=== PATIENT | female | born 1990 ===

== ENCOUNTER 2016-11-29 16:56 | Emergency (ER) | payer SELFPAY ==
[2016-11-29 17:10] VITALS: BP 143/88; PULSE 79; RESP 20; TEMP 98.8; O2SAT 98
[2016-11-29] MEDS ORDERED: Oxycodone/Acetaminophen 5/325 mg Tab PO STA (17:13)
[2016-11-29] MEDS ORDERED: Oxycodone/Acetaminophen 5/325 mg Tab ONE (17:34)
--- NOTE | 2016-11-29 17:40 | ED PDOC ---
Arrival/HPI - General Chief Complaint: Hip Pain Past Medical History - Psychiatric Hx Substance Use: No - Surgical History Hx Appendectomy: Yes - Anesthesia Hx Anesthesia: Yes Hx Anesthesia Reactions: No Family/Social History Smoking Status: Never Smoked Hx Alcohol Use: No Hx Substance Use: No Allergies/Home Meds Allergies/Adverse Reactions: Allergies No Known Allergies Allergy (Verified 11/29/16 17:06) Physical Exam Vital Signs Temp Pulse Resp BP Pulse Ox 11/29/16 17:06 98.8 F 79 20 143/88 98
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
--- NOTE | 2016-11-30 07:36 | RAD ---
HISTORY: hip pain COMPARISON: No prior FINDINGS: BONES: Normal. No fracture. JOINTS: Normal. No osteoarthritis. SOFT TISSUE: Normal. OTHER FINDINGS: None . IMPRESSION: Normal Bone Xray.
--- NOTE | 2016-11-30 07:37 | RAD ---
PROCEDURE: Right Knee Radiographs. HISTORY: knee injury COMPARISON: None. FINDINGS: BONES: Normal. No fracture. JOINTS: Normal. No osteoarthritis. JOINT EFFUSION: None. OTHER FINDINGS: None. IMPRESSION: Normal radiographs of the right knee.
== END 2016-11-29 19:34 | disposition home or self-care (01) ==
LOC: H.ER 16:56
DX: S89.91XA Unspecified injury of right lower leg, initial encounter (principal); M25.552 Pain in left hip; V03.10XA Pedestrian on foot injured in collision with car, pick-up truck or van in traffic accident, initial encounter; Y92.410 Unspecified street and highway as the place of occurrence of the external cause

== ENCOUNTER 2018-10-29 16:24 | Emergency (ER) | payer OTHER ==
[2018-10-29 16:46] VITALS: BMI 39.9
[2018-10-29] MEDS ORDERED: Sodium Chloride 0.9% 1,000 ML IV STA (17:51)
[2018-10-29 18:21] LABS: SQUAMOUS EPITHIAL 1 /hpf (0-5); URINE BACTERIA RARE (<OCC); URINE BILIRUBIN NEGATIVE (NEGATIVE); URINE BLOOD NEGATIVE (NEGATIVE); URINE CLARITY SLIGHTY-CLOUDY (Clear); URINE COLOR YELLOW (YELLOW); URINE GLUCOSE (UA) NEG (NEGATIVE); URINE LEUKOCYTE ESTERASE NEG Leu/uL (Negative); URINE PROTEIN NEGATIVE (NEGATIVE); URINE UROBILINOGEN 0.2-1.0 mg/dL (0.2-1.0)
[2018-10-29 18:38] LABS: BASO # 0.1 K/uL (0.0-0.2); EOS # 0.1 K/uL (0.0-0.7); EOS % 0.9 % (0.0-4.0); HEMOGLOBIN 13.9 g/dL (12.0-16.0); LYMPH # 2.8 K/uL (1.0-4.3); LYMPH % 31.2 % (20.0-40.0); MEAN CELL VOLUME 88.5 fl (81.0-99.0); MEAN CORPUSCULAR HEMOGLOBIN 29.1 pg (27.0-31.0); MEAN CORPUSCULAR HGB CONC 32.9 g/dL (33.0-37.0); MEAN PLATELET VOLUME 7.1 fl (7.2-11.7); MONO # 0.6 K/uL (0.0-0.8); MONO % 6.8 % (0.0-10.0); NEUT # 5.4 K/uL (1.8-7.0); NEUT % 60.1 % (50.0-75.0); RBC 4.79 Mil/uL (3.80-5.20); RED CELL DISTRIBUTION WIDTH 14.8 % (11.5-14.5)
[2018-10-29 18:48] LABS: ALB/GLOB RATIO 1.2 (1.0-2.1); ALBUMIN 4.2 g/dL (3.5-5.0); ALT/SGPT 27 U/L (9-52); AST/SGOT 23 U/L (14-36); BLOOD UREA NITROGEN 12 mg/dl (7-17); CALCIUM 9.1 mg/dL (8.4-10.2); GFR NON-AFRICAN AMERICAN > 60
--- NOTE | 2018-10-29 19:26 | ED PDOC ---
HPI: Female Pain Time Seen by Provider: 10/29/18 16:48 Chief Complaint (Nursing): Female Genitourinary History Per: Patient History/Exam Limitations: no limitations Onset/Duration Of Symptoms: Days Current Symptoms Are (Timing): Still Present Severity: Mild Quality Of Discomfort: Sharp Associated Symptoms: Nausea. denies: Fever, Chills Alleviating Factors: None Additional Complaint(s): Pt. is a 27 y/o Healthy Female who reports 2 week history of crampy pelvic pain, with no associated vaginal discharge, dysuria, or fevers. She reports some mild nausea today. Pt. saw her counterintelligence analyst last week and was given a rx for a pelvic US but her she had her menses so didn't schedule. Pt. reports her menses finished and her pelvic pain continued prompting visit to ED. Past Medical History Reviewed: Historical Data, Nursing Documentation, Vital Signs Vital Signs: Last Vital Signs Temp 98.1 F 10/29/18 16:48 Pulse 86 10/29/18 16:48 Resp BP 137/84 10/29/18 16:48 Pulse Ox 100 10/29/18 16:48 - Medical History PMH: No Chronic Diseases - Surgical History Surgical History: Appendectomy - Family History Family History: States: Unknown Family Hx - Home Medications Home Medications: Ambulatory Orders Medication Instructions Recorded Famotidine [Pepcid] 20 mg PO BID #14 tab 06/02/15 Nitrofurantoin Macrocrystals 100 mg PO BID #10 cap 06/02/15 [Macrobid] Cyclobenzaprine [Cyclobenzaprine 10 mg PO BID #14 tab 11/29/16 HCl] Ibuprofen [Motrin] 400 mg PO Q6 #30 tab 11/29/16 - Allergies Allergies/Adverse Reactions: Allergies Allergy/AdvReac Type Severity Reaction Status Date / Time No Known Allergies Allergy Verified 10/29/18 16:55 Review of Systems Constitutional: Negative for: Fever, Chills Cardiovascular: Negative for: Chest Pain, Palpitations Respiratory: Negative for: Cough, Shortness of Breath Gastrointestinal: Positive for: Nausea. Negative for: Vomiting, Abdominal Pain, Diarrhea Genitourinary Female: Positive for: Pelvic Pain. Negative for: Dysuria, Frequency, Vaginal Discharge Physical Exam - Reviewed Vital Signs Reviewed: Yes - Physical Exam Appears: Positive for: Well, Non-toxic Head Exam: Positive for: ATRAUMATIC Skin: Positive for: Normal Color, Warm, Dry Eye Exam: Positive for: Normal appearance Neck: Positive for: Normal Cardiovascular/Chest: Positive for: Regular Rate, Rhythm Respiratory: Positive for: Normal Breath Sounds Gastrointestinal/Abdominal: Positive for: Normal Exam, Soft. Negative for: Tenderness Pelvic Exam: Positive for: External Exam Normal, Bimanual Exam Normal, No Cerv. Motion Tender, Tender Adnexa (Mild tenderness with no appreciable mass to adnexa bilaterally). Negative for: Active Bleeding, Blood, Discharge - Laboratory Results Result Diagrams: 10/29/18 18:32 10/29/18 18:32 Lab Results: Total Bilirubin 0.5 mg/dl (0.2-1.3) 10/29/18 18:32 AST 23 U/L (14-36) 10/29/18 18:32 ALT 27 U/L (9-52) 10/29/18 18:32 Alkaline Phosphatase 99 U/L (38-126) 10/29/18 18:32 Total Protein 7.8 G/DL (6.3-8.2) 10/29/18 18:32 Albumin 4.2 g/dL (3.5-5.0) 10/29/18 18:32 Globulin 3.6 gm/dL (2.2-3.9) 10/29/18 18:32 Albumin/Globulin Ratio 1.2 (1.0-2.1) 10/29/18 18:32 Urine Color Yellow (YELLOW) 10/29/18 18:10 Urine Clarity Slighty-cloudy (Clear) 10/29/18 18:10 Urine pH 6.0 (5.0-8.0) 10/29/18 18:10 Ur Specific [place] 1.024 (1.003-1.030) 10/29/18 18:10 Urine Protein Negative mg/dL (NEGATIVE) 10/29/18 18:10 Urine Glucose (UA) Neg mg/dL (NEGATIVE) 10/29/18 18:10 Urine Ketones Negative mg/dL (NEGATIVE) 10/29/18 18:10 Urine Blood Negative (NEGATIVE) 10/29/18 18:10 Urine Nitrate Negative (NEGATIVE) 10/29/18 18:10 Urine Bilirubin Negative (NEGATIVE) 10/29/18 18:10 Urine Urobilinogen 0.2-1.0 mg/dL (0.2-1.0) 10/29/18 18:10 Ur Leukocyte Esterase Neg Obi/uL (Negative) 10/29/18 18:10 Urine RBC (Auto) 2 /hpf (0-3) 10/29/18 18:10 Urine Microscopic WBC 1 /hpf (0-5) 10/29/18 18:10 Ur Squamous Epith Cells 1 /hpf (0-5) 10/29/18 18:10 Urine Bacteria Rare (<OCC) 10/29/18 18:10 - ECG O2 Sat by Pulse Oximetry: 100 Medical Decision Making Medical Decision Making: IV access established. IVF given IV Toradol IV Zofran Pelvic US ordered. On reassessment, pt. resting comfortably, abd. soft/nt. Case endorsed to CONRAD Madison at 8pm, pending US results. Disposition - Clinical Impression Clinical Impression: Pelvic pain - Patient ED Disposition Is Patient to be Admitted: Transfer of Care (CONRAD Madison, pending US) Counseled Patient/Family Regarding: Studies Performed, Diagnosis, Need For Followup - Disposition Disposition: Transfer of Care (CONRAD Madison at 8 pm, pending US) Disposition Time: 20:28 Condition: STABLE Forms: [employer] ([place])
--- NOTE | 2018-10-29 21:24 | ED PDOC ---
- Laboratory Results Result Diagrams: 10/29/18 18:32 10/29/18 18:32 Lab Results: Total Bilirubin 0.5 mg/dl (0.2-1.3) 10/29/18 18:32 AST 23 U/L (14-36) 10/29/18 18:32 ALT 27 U/L (9-52) 10/29/18 18:32 Alkaline Phosphatase 99 U/L (38-126) 10/29/18 18:32 Total Protein 7.8 G/DL (6.3-8.2) 10/29/18 18:32 Albumin 4.2 g/dL (3.5-5.0) 10/29/18 18:32 Globulin 3.6 gm/dL (2.2-3.9) 10/29/18 18:32 Albumin/Globulin Ratio 1.2 (1.0-2.1) 10/29/18 18:32 Urine Color Yellow (YELLOW) 10/29/18 18:10 Urine Clarity Slighty-cloudy (Clear) 10/29/18 18:10 Urine pH 6.0 (5.0-8.0) 10/29/18 18:10 Ur Specific [place] 1.024 (1.003-1.030) 10/29/18 18:10 Urine Protein Negative mg/dL (NEGATIVE) 10/29/18 18:10 Urine Glucose (UA) Neg mg/dL (NEGATIVE) 10/29/18 18:10 Urine Ketones Negative mg/dL (NEGATIVE) 10/29/18 18:10 Urine Blood Negative (NEGATIVE) 10/29/18 18:10 Urine Nitrate Negative (NEGATIVE) 10/29/18 18:10 Urine Bilirubin Negative (NEGATIVE) 10/29/18 18:10 Urine Urobilinogen 0.2-1.0 mg/dL (0.2-1.0) 10/29/18 18:10 Ur Leukocyte Esterase Neg Obi/uL (Negative) 10/29/18 18:10 Urine RBC (Auto) 2 /hpf (0-3) 10/29/18 18:10 Urine Microscopic WBC 1 /hpf (0-5) 10/29/18 18:10 Ur Squamous Epith Cells 1 /hpf (0-5) 10/29/18 18:10 Urine Bacteria Rare (<OCC) 10/29/18 18:10 - ECG O2 Sat by Pulse Oximetry: 100 - Progress ED Course And Treament: Case endorsed to bid writer from [facility] CORNELL pending u/s History Pelvic pain. Comparison None available. Technique TA/TV Findings Uterus Measures 10.7 x 6.3 x 5.2 cm. Normal in size and appearance. No fibroid or other mass lesion seen. Endometrium Inhomogeneous measures 11 mm in diameter. Right ovary Measures 3.9 x 3.3 x 1.9 cm. Normal flow. Complex tubular structure in the right adnexal region with internal echoes measuring 7.8 x 4.4 x 3.1 cm. Left ovary Measures 3.1 x 2.3 x 2.3 cm. No solid mass. Normal flow. Free fluid No significant free fluid noted. Other Findings None. Impression 1. Inhomogeneous endometrium. 2. Large complex tubular structure with internal echoes in the right adnexal region, consistent with tubo-ovarian abscess versus hydrosalpinx. Consider follow-up with MRI Case discussed with Dr. Santamaria, Sports Complex Attendant on-call; recommends outpatient abx treatment and [facility] follow up Rocephin IM, Doxycyline PO ordered GC/Chlamydia added Patient educated on findings, discharged with rx Doxycyline, Naproxen Advised follow up [facility] Hanger within 2-3 days Refrain from intercourse until treatment completed Return precautions given Disposition - Clinical Impression Clinical Impression: Pelvic pain, Hydrosalpinx - POA Present On Arrival: None - Disposition [facility] [Outside] Disposition: Routine/Home Disposition Time: 23:08 Condition: IMPROVED Additional Instructions: Follow up with your [facility] within 2-3 days Take medication as prescribed Return to ED for worsening/concerning symptoms Prescriptions: Doxycycline Monohydrate 100 mg PO BID #27 capsule Naproxen [Naprosyn] 500 mg PO Q12 PRN #20 tablet PRN Reason: Pain, Moderate (4-7) Instructions: Acute Pelvic Pain, Pelvic Inflammatory Disease Forms: [employer] (Kyrgyz)
[2018-10-29] MEDS ORDERED: cefTRIAXone (Rocephin) 250 mg Inj IM ONE (22:03)
[2018-10-29] MEDS ORDERED: Sterile Water 10 ML IV ONE (22:27)
[2018-10-29 23:17] VITALS: BP 132/71; PULSE 76; RESP 16; TEMP 98.2; O2SAT 98
--- NOTE | 2018-10-30 09:54 | US ---
Date of service: 10/29/2018 HISTORY: pelvic pain COMPARISON: None available. TECHNIQUE: Transabdominal and transvaginal FINDINGS: UTERUS: Measures 10.7 x 6.3 x 5.2 cm. Normal in size and appearance. No fibroid or other mass lesion seen. ENDOMETRIUM: Measures 11 mm in diameter. Unremarkable. CERVIX: No cervical abnormality identified. RIGHT OVARY: Measures 3.9 x 3.3 x 1.9 cm. No solid mass. Normal flow. Adjacent to the right ovary there is a somewhat distended tubular structure containing internal echoes with layering debris. This structure measures approximately 3.1 x 4.4 x 7.8 cm. Differential diagnosis includes fallopian tube with some old hemorrhagic content or post infectious debris, or an atypical ovarian or paraovarian cyst. LEFT OVARY: Measures 3.1 x 2.3 x 2.3 cm. No solid mass. Normal flow. FREE FLUID: No significant free fluid noted. OTHER FINDINGS: None. IMPRESSION: Tubular structure with internal echoes in right adnexa, possibly hydrosalpinx. Internal echoes may represent old hemorrhagic content or post infectious/postinflammatory debris. Layering debris is demonstrated within this structure. No other significant abnormality is identified. The preliminary findings for this examination were reported by [facility] at 8:15 p.m. on 10/29/2018. There is concurrence of this report with the preliminary findings.
== END 2018-10-29 23:17 | disposition home or self-care (01) ==
LOC: H.ER 16:24
DX: R10.9 Unspecified abdominal pain (principal); N70.11 Chronic salpingitis
CPT/HCPCS: 76830; 76856; 80053; 81003; 81025; 85025; 87491; 87591; 96372; 96374; 96375; 99284; J0696; J1885; J2405; J7030